=== PATIENT | female | born 1975 | race Two or more races ===

== ENCOUNTER 2025-11-10 09:14 | Emergency (ER) | payer OTHER, SELFPAY ==
--- OUTSIDE RECORDS SUMMARY | 2025-11-09 19:47 | XMS_ITS | Encounter Summary ---
Author Organization [facility] Address [address] [place] [address] Care Team Providers Care Supervisor Calibration Name Role Phone Karey Powers Primary Care Provider [phone] Reason for Visit * Reason Comments Earache B/L ear pain on and off for several days Encounter Details Date Type Department Care Team (Late st Contact Info) Description 11/09/2025 7:47 PM EST - 11/09/2025 8:02 PM EST Emergency [facility] Emergency [address] [place] [address] Left ear pain (Primary Dx); Acute otitis externa of left ear, unspecified type Discharge Disposition: Home or Self Care Social History Tobacco Use Types Packs/Day Years Used Date Smoking Tobacco: Never Smokeless Tobacco: Never Alcohol Use Standard Drinks/Week Comments Yes 0 (1 standard drink = 0.6 oz pur e alcohol) Comments No Sex and Gender Information Value Date Recorded Sex Assigned at Not on file Legal Sex Female 10:51 AM EST Gender Identity Not on file Sexual Orientation Not on file documented as of this encounter Last Filed Vital Signs Vital Sign Reading Time Taken Comments Blood Pressure 150/100 11/09/2025 4:49 PM EST Pulse 107 11/09/2025 4:49 PM EST Temperature 36.5 C (97.7 F) 11/09/2025 4:55 PM EST Respiratory Rate 18 11/09/2025 4:49 PM EST Oxygen Saturation 99% 11/09/2025 4:49 PM EST Inhaled Oxygen Concentration - - Weight 77.1 kg (170 lb) 11/09/2025 4:49 PM EST Height 162.6 cm (5' 4 ) 11/09/2025 4:49 PM EST Body Mass Index 29.18 11/09/2025 4:49 PM EST documented in this encounter Functional Status * Calculated C-SSRS Risk Score (Lifetime/Recent) Answer Date of Assessment Author No Risk Indicated 11/09/2025 4:54 PM Saba De La Cruz RN * [place] Suicide Severity Rating Scale (Screener/Recent Self-Report) Question Answer Date of Assessment Author 1. Wish to be (Past 1 Month) No 025 4:54 PM Saba De La Cruz RN 2. Non-Specific Active Suici mandie Thoughts (Past 1 Month) No 11/09/2025 4:54 PM Vimal De La Cruz son, RN 6. Suicidal Behavior (Lifetime) No 5 4:54 PM Saba De La Cruz RN documented as of this encounter Discharge Instructions * Attachments The following attachments cannot be sent through Care Everywhere. * Earache: Adult (Uruguayan) * Otitis Externa ([place]ayan) documented in this encounter Medications at Time of Discharge ibuprofen (ADVIL,MOTRIN) 600 mg tablet Take 600 mg by mouth every 8 hours as needed. ibuprofen (ADVIL,MOTRIN) 800 mg tablet Take 1 tablet by mouth every 6-8 hours as needed for pain. 30 tablet 11/09/2025 6 losartan-hydroCH LOROthiazide (HYZAAR) 100-25 mg per tablet Take 1 tablet by mouth daily. menthol gel Apply 1 Application topically 1 (one) time each day. 100 g 2 03/16/2025 mirabegron (MYRBETRIQ) 50 mg tablet extended release 24 hr 24 hr tablet Take 50 mg by mouth daily. 01/24/2024 ofloxacin (FLOXIN) 0.3 % otic solution Administer 5 drops into the left ear 2 (two) times a day for 5 days. 5 mL 11/09/2025 5 documented as of this encounter Ordered Prescriptions Prescription Sig Dispense Quantity Refills Last Filled Start Date End Date ofloxacin (FLOXIN) 0.3 % otic solution Administer 5 drops into the left ear 2 (two) times a day for 5 days. 5 mL 11/09/2025 5 ibuprofen (ADVIL,MOTRIN) 800 mg tablet Take 1 tablet by mouth every 6-8 hours as needed for pain. 30 tablet 11/09/2025 documented in this encounter Discharge Disposition Disposition Code Departure Means Destination Comment s Home or Self Care documented in this encounter Progress Notes * Saba Duong RN - 11/09/2025 4:50 PM EST Pt to ed c/o left ear pain. Initially c/o right ear pain which has resolved. Denies subjective fevers, no vision changes, denies any dizziness. * Abiola Negrete MD - 11/09/2025 4:47 PM EST Images from the original note were not included. [facility] EMERGENCY EMERGENCY DEPARTMENT ENCOUNTER CHIEF COMPLAINT Chief Complaint Patient presents with Earache B/L ear pain on and off for several days HISTORY OF PRESENT ILLNESS Patient presents reporting pain in her neck and ears for 2 weeks first on left and now on right. Patient denies fever, trauma, chest pain, shortness of fever, abdominal pain, nausea, vomiting. She notes she had cold symptoms at that time. Patient reports she can move her neck but it hurts. She denies headache. FOCUSED PHYSICAL EXAM Vitals: 11/09/25 1649 BP: (!) 150/100 BP Location: Right arm Patient Position: Standing Pulse: 107 Resp: 18 SpO2: 99% Weight: 77.1 kg (170 lb) Height: 1.626 m (64 ) General: awake, alert, NAD HEENT: normal TM, canals and external ears bilaterally Respiratory: no respiratory distress, normal lung sounds Cardiovascular: RRR, no murmurs Abdomen: soft, non-tender Neurological: no focal neurologic deficits DIAGNOSTIC TESTING Based on the patient's history and physical exam the following labs and radiology studies were ordered in order to evaluate, work-up and determine best course of treatment for the patient. The studies were ordered by me and will be interpreted by the provider who completes the patient's course: Labs Reviewed - No data to display No orders to display No results found for this or any previous visit (from the past 4464 hours). Based on the above history and exam the following medications and/or treatments were ordered in order to start initial treatment and stabilization the patient's condition: Medications - No data to display The patient is condition and response to care provided will be followed closely and may be transitioned to another provider or continued by me. This is only an initial rapid medical evaluation. Abiola Negrete MD (electronically signed) 4:54 PM EST * CHANCE Zarate - 11/09/2025 4:43 PM EST HPI Chief Complaint Patient presents with Earache B/L ear pain on and off for several days HPI bilateral pain worsening for the past several days but now worse on left side denying fever chills headache discharge. No previous surgeries. No reported trauma or recent submersion. No treatments tried. No data recorded Patient History Medical History[1] Surgical History[2] Family History[3] Social History Tobacco Use Smoking status: Never Smokeless tobacco: Never Substance Use Topics Alcohol use: Yes Drug use: Never Review of Systems Review of Systems Physical Exam ED Triage Vitals Temp Heart Rate Resp BP 11/09/25 1655 11/09/25 1649 11/09/25 1649 11/09/25 1649 36.5 ??C (97.7 ??F) 107 18 (!) 150/100 SpO2 Temp src Heart Rate Source Patient Position 11/09/25 1649 -- 11/09/25 1649 11/09/25 1649 99 % Monitor Standing BP Location FiO2 (%) 11/09/25 1649 -- Right arm Physical Exam GENERAL: Well developed, no acute distress HEENT: Normocephalic and atraumatic, EOMI, no erythema bulging of the tympanic membrane but tenderness within the canal, no mastoid tenderness NECK: Supple, trachea is midline RESP: No respiratory distress CARDIOVASCULAR: Regular rate GASTROINTESTINAL: Abdomen is soft, non distended MUSCULOSKELETAL: ROM normal, no obvious acute deformities SKIN: Warm and dry NEUROLOGIC: At baseline, no acute focal deficits PSYCHIATRIC: Calm and cooperative ED Course & MDM Clinical Impressions as of 11/09/252001 Left ear pain Acute otitis externa of left ear, unspecified type Medical Decision Making Exam history consistent with left otitis externa Vital signs reviewed Pulse oximetry reviewed and found to be > 94% on room air Physical exam as above Nursing notes reviewed Social determinants of health considered including housing follow-up social and financial support Patient deemed appropriate for discharge with symptomatic treatment, recommendations to follow-up with primary care doctor / specialist with return precautions provided Procedures CHANCE Zarate 11/09/252012 [1] Past Medical History: Diagnosis Date Dyspepsia 02/01/2020 DX:Dyspepsia Essential hypertension 02/01/2020 DX:Essential hypertension Functional constipation 02/01/2020 DX:Functional constipation Mixed hyperlipidemia 02/01/2020 DX:Mixed hyperlipidemia Pre-diabetes 02/01/2020 DX:Pre-diabetes [2] Past Surgical History: Procedure Laterality Date SECTION PROCEDURE: HISTORICAL DELIVERY; COMMENT: x3 [3] Family History Problem Relation Name Age of Onset Breast cancer Neg Hx Ovarian cancer Neg Hx Uterine cancer Neg Hx Pancreatic cancer Neg Hx Prostate cancer Neg Hx CHANCE Zarate 11/09/252019 Cosigned by Otis Fan MD at 11/09/2025 10:52 PM EST documented in this encounter Plan of Treatment Not on file documented as of this encounter Goals Goal Patient Goal Type Associated Problems Recent Progress Patient-Stated? Author STG's 5 visits General Yes Temo Berumen, PT Note: Pt will report a 1 point decrease in LBP during daily activities including work. Pt will demonstrate a 1/2 grade or better improvement in core and B LE strength deficits. Pt will perform correct technique for sup<->sit transfers w/ min VC's in 5/5 trials. Pt is Independent and compliant with initial HEP. LTG's 10 visits General Yes Temo Berumen, PT Note: Pt will report a 2 point decrease in LBP during daily activities including work. Pt will demonstrate a 1 grade or better improvement in core and B LE strength deficits. Pt will I demonstrate proper technique for sup<->sit transfers in 5/5 trials. Pt will be Independent and compliant with final HEP. documented as of this encounter Visit Diagnoses Diagnosis Left ear pain- Primary Unspecified otalgia Acute otitis externa of left ear, unspecified type documented in this encounter Administered Medications Inactive Administered Medications - up to 3 most recent administrations Medication Order MAR Action Action Date Dose Rate Site ketorolac (TORADOL) injection 30 mg 30 mg, intramuscular, Once, On Sat11/09/25 at 194, For 1 dose Given 11/09/2025 7:58 PM EST 30 mg Left Anterior Thigh documented in this encounter Active and Recently Administered Medications Times are shown in EST. Scheduled Medication Order 11/07/2025 11/08/2025 11/09/2025 ketorolac (TORADOL) injection 30 mg (COMPLETED) 30 mg, intramuscular, Once, On Sat11/09/25 at 194, For 1 dose 1957 (Given - Provid er: Qamar Theodore RN) documented in this encounter Orders Medications Ordered That Yogesh ht Not Have Been Administered Count Last Ordered Date First Ordered Date ketorolac (TORADOL) injection 30 mg 1 11/09 documented in this encounter Care Teams Supervisor Calibration Relationship Specialty Start Date End Date Karey Powers PA [facility] [place] [address] PCP - General Internal Medicine 01/15/20 documented as of this encounter
[2025-11-10 09:17] VITALS: BP 139/80; PULSE 97; RESP 16; TEMP 36.6; O2SAT 97; BMI 29.3
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
--- OUTSIDE RECORDS SUMMARY | 2025-11-10 09:35 | XMS_ITS | Clinical Summary ---
Author Organization [facility] [address] [facility] Address [address] [place] [phone] Phone Care Team Providers Care Tester Vibrator Equipment Name Role Phone Karey Powers Primary Care Provider [phone] Allergies Active Allergy Reactions Criticality Noted Date Comments Other 02/26/2023 Percocet [Apap-fd&c Blue #1-oxycodone] Medications ibuprofen (ADVIL,MOTRIN) 600 mg tablet Take 600 mg by mouth every 8 hours as needed. Active losartan-hydroC HLOROthiazide (HYZAAR) 100-25 mg per tablet Take 1 tablet by mouth daily. Active mirabegron (MYRBETRIQ) 50 mg tablet extended release 24 hr 24 hr tablet Take 50 mg by mouth daily. 4 Active menthol gel Apply 1 Application topically 1 (one) time each day. 100 g 2 5 Active ibuprofen (ADVIL,MOTRIN) 800 mg tablet Take 1 tablet by mouth every 6-8 hours as needed for pain. 30 tablet 5 11/19/19 26 Active ofloxacin (FLOXIN) 0.3 % otic solution Administer 5 drops into the left ear 2 (two) times a day for 5 days. 5 mL 5 11/14/20 25 Active Active Problems Problem Noted Date Diagnosed Date Cystocele, midline 12/30/2024 Assessment & Plan (12/30/2024 4:34 PM EST): I counseled Madeline that she may have a very mild cystocele, but if she is not symptomatic, there is no intervention necessary. The mucosa we see on exam today is actually normal. She was reassured. Elevated prolactin level 02/26/2023 Overview (12/18/2024): Last Assessment & Plan: I recommended she have a repeat fasting, first thing in the am, no intercourse or breast stimulation for a few days prior. Will discuss results when available. She agreed. Pain of finger of right hand 02/26/2023 Overview (12/18/2024): Last Assessment & Plan: I reviewed her chart and she was referred and had an appt last April. She did not know about it. I referred her again. She was informed that she should hear back in 1- 2 weeks with an appointment date. If not, she should call back to our office and inquire on getting this arranged. She voiced understanding and agreed. Herpes simplex vulvovaginitis 11/27/2021 Overview (12/18/2024): Last Assessment & Plan: I reviewed the findings with the patient consistent with HSV lesions. Not likely primary outbreak given history of previous lesions per patient report. I discussed the nuances of testing and the chronicity of disease. I reviewed method of transmission even in the absence of lesions. I explained Valtrex can help prevent asymptomatic transmission. I recommended against intercourse with active lesions. I recommended she share this information with partners. She understood and agreed. She requested suppression. Rx given for treatment and suppression. Irregular menses 11/27/2021 Overview (12/18/2024): Last Assessment & Plan: Will obtain lab evaluation. Could be menopausal transition, but given previous history of irregular menses, could be PCOS. She will have labs today. No indication as yet to induce menses given LMP within the past month. Dyspepsia 02/01/2020 Essential hypertension 02/01/2020 Functional constipation 02/01/2020 Mixed hyperlipidemia 02/01/2020 Pre-diabetes 02/01/2020 Encounters Date Type Department Care Team Description 11/09/2025 7:47 PM EST - 11/09/2025 8:02 PM EST Emergency [facility] Emergency [address] [place] [address] Left ear pain (Primary Dx); Acute otitis externa of left ear, unspecified type Discharge Disposition: Home or Self Care 10/27/2025 2:00 PM EST Treatment Outpatient [address] [phone] Angy Hernandez, [employer] Chronic bilateral low back pain with bilateral sciatica (Primary Dx) 10/13/2025 1:30 PM EST Treatment Outpatient [address] [phone] Angy Hernandez, [employer] Chronic bilateral low back pain with bilateral sciatica (Primary Dx) 09/29/2025 12:30 PM EST Treatment Outpatient [address] [phone] Angy Hernandez, [employer] Chronic bilateral low back pain with bilateral sciatica (Primary Dx) 09/22/2025 2:00 PM EST Treatment Outpatient [address] [phone] Angy Hernandez, [employer] Chronic bilateral low back pain with bilateral sciatica (Primary Dx) 09/17/2025 2:30 PM EDT Evaluation Outpatient [address] [phone] Temo Berumen, PT Chronic bilateral low back pain with bilateral sciatica (Primary Dx) 08/26/2025 1:30 PM EDT Office Visit Orthopedic Surgery - [address] [phone] Casey Gann DPM Controlled type 2 diabetes with neuropathy (CMS/HCC V24, CMS/HCC V28) (Primary Dx); Chronic bilateral low back pain with bilateral sciatica; Lumbosacral radiculopathy; Metatarsalgia of left foot; Metatarsalgia of right foot from Last 3 Months Surgical History Surgery Date Site/Laterality Comments SECTION PROCEDURE: HISTORICAL DELIVERY; COMMENT: x3 Medical History Medical History Date Comments Functional constipation 02/01/2020 DX:Funct ional constipation Dyspepsia 02/01/2020 DX:Dyspepsia Pre-diabetes 02/01/2020 DX:Pre-diabetes Essential hypertension 02/01/2020 DX:Essent ial hypertension Mixed hyperlipidemia 02/01/2020 DX:Mixed hy perlipidemia Family History Medical History Relation Name Comments Breast cancer Neg Hx Ovarian cancer Neg Hx Pancreatic cancer Neg Hx Prostate cancer Neg Hx Uterine cancer Neg Hx Social History Tobacco Use Types Packs/Day Years Used Date Smoking Tobacco: Never Smokeless Tobacco: Never Alcohol Use Standard Drinks/Week Comments Yes 0 (1 standard drink = 0.6 oz pur e alcohol) Comments No Sex and Gender Information Value Date Recorded Sex Assigned at Not on file Legal Sex Female 10:51 AM EST Gender Identity Not on file Sexual Orientation Not on file Obstetrics History * This document contains information received from the source organization and may not represent a complete record from that organization. Para Term AB IAB SAB Ectopic Multiple Livin g Live Births 6 3 3 0 0 0 3 3 Date Outcome GA Total Labor Labor//3rd Weight Sex Type Anes PTL Yaima A1 A5 Name Clin Term CS-Un spec Living Term CS-Un spec Living Term CS-Un spec Living Last Filed Vital Signs Vital Sign Reading [...] Mass Index 29.18 11/09/2025 4:49 PM EST Plan of Treatment Health Maintenance Due Date Last Done Comments Diabetes: Annual Foot Exam 1983 Diabetes: Annual Retina Eye Exam 1983 Hepatitis B Vaccines (1 of 3 - 19+ 3-dose series) 1992 Pneumococcal Vaccine: 50+ Years (1 of 2 - PCV) 1992 Social Influencers of Health Screening 10/27/2022 RSV Immunization Adult Patients (1 - Risk 50-74 years 1-dose series) 2023 Depression Screening 11/18/2024 COVID-19 Vaccine (3 - season) 2025 05/10/2021, 04/12/2021 Diabetes: Annual Urine Albumin-Creatinine Ratio (uACR) 08/26/2025 11/16/2020, 11/16/2020 Diabetes: Blood Sugar Control Test (HGBA1C) 08/26/2025 09/30/2024 Diabetes: Annual GFR (Glomerular Filtration Rate) 09/30/2025 09/30/2024 Hypertension/CHF/CAD Annual BMP Blood Test 09/30/2025 09/30/2024 Breast Cancer Screening 10/08/2025 10/08/20, 08/04/2022, 07/29/2021 Zoster Vaccines (2 of 2) 12/08/2025 10/13/2025 Cervical Cancer Screening: HPV 05/09/2026 05/09/2021 DTaP,Tdap,and Td Vaccines (3 - Td or Tdap) 04/24/2028 04/24/2018, 09/12/2017 Cholesterol Screening (Lipid Panel) 09/30/2029 09/30/2024, 09/30/2024, 06/02/2024, Additional history exists Colorectal Cancer Screening: Colonoscopy 06/08/2030 06/08/2020 MMR Vaccines Aged Out 04/24/2018 No longer eligi ble based on patient's age to complete this topic HIV Screening Completed 05/09/2021 Hepatitis C Screening Completed 10/17/2021, 021 Influenza Vaccine Completed 10/13/2025, , 09/30/2020, Additional history exists HIB Vaccines Aged Out No longer eligi ble based on patient's age to complete this topic HPV Vaccines Aged Out No longer eligi ble based on patient's age to complete this topic Hepatitis A Vaccines Aged Out No long er eligible based on patient's age to complete this topic IPV Vaccines Aged Out No longer eligi ble based on patient's age to complete this topic Meningococcal ACWY Vaccine Aged Out N o longer eligible based on patient's age to complete this topic Meningococcal B Vaccine Aged Out No l onger eligible based on patient's age to complete this topic RSV Immunization Patients Under 20 months Aged Out No longer eligible based on patient's age to complete this topic Varicella Vaccines Aged Out No longer eligible based on patient's age to complete this topic Goals Goal Patient Goal Type Associated Problems [...] be Independent and compliant with final HEP. Procedures Procedure Name Priority Date/Time Associated Diagnosis Comments XR LUMBAR SPINE 2-3 VIEWS Routine 08/26/2025 2:19 PM EDT Back pain SCREENING MAMMOGRAPHY BI 2-VIEW BREAST INC CAD Routine 10/08/2023 1:59 PM EST Encounter for screening mammogram for malignant neoplasm of breast HPV Routine 05/09/2021 HEPATITIS C SCREENING Routine 05/09/2021 HIV SCREENING Routine 05/09/2021 COLONOSCOPY Routine 06/08/2020 from Last 3 Months or Most Recently Relevant to Health Maintenance Results * XR Lumbar Spine 2-3 Views (08/26/2025 2:19 PM EDT) Anatomical Region Laterality Modality Spine, L-spine Computed Radiogr aphy 09/30/2025 8:09 PM EST Impressions 09/30/2025 8:10 PM EST No acute fracture or dislocation of the lumbar spine. -------- FINAL REPORT -------- Dictated By: Alfredo Maldonado Dictated Date: 09/30/2025 20:09 ET Assigned Physician: Alfredo Maldonado Reviewed and Electronically Signed By: Alfredo Maldonado Signed Date: 09/30/2025 20:10 ET Workstation ID: [id number] Transcribed By: Self Edit Transcribed Date: 09/30/2025 20:09 ET Narrative 09/30/2025 8:10 PM EST HISTORY: low back pain TECHNIQUE: AP and lateral views of the lumbar spine COMPARISON: None FINDINGS: Vertebral body height is maintained. Decreased disc height at L1-L2, L5-S1 with endplate sclerosis. Mild facet arthropathy at the lower lumbar spine. No acute fracture or dislocation is seen. The spinal alignment is well maintained without evidence of spondylolisthesis. Large amount stool throughout the colon. The sacroiliac joints are unremarkable. Procedure Note Alfredo Maldonado MD - 09/30/2025 HISTORY: low back pain TECHNIQUE: AP and lateral views of the lumbar spine COMPARISON: None FINDINGS: Vertebral body height is maintained. Decreased disc height at L1-L2, L5-S1with endplate sclerosis. Mild facet arthropathy at the lower lumbar spine.No acute fracture or dislocation is seen. The spinal alignment is wellmaintained without evidence of spondylolisthesis. Large amount stoolthroughout the colon. The sacroiliac joints are unremarkable. IMPRESSION: No acute fracture or dislocation of the lumbar spine. -------- FINAL REPORT -------- Dictated By: Alfredo Maldonado Dictated Date: 09/30/2025 20:09 ET Assigned Physician: Alfredo Maldonado Reviewed and Electronically Signed By: Alfredo Maldonado Signed Date: 09/30/2025 20:10 ET Workstation ID: [id number] Transcribed By: Self Edit Transcribed Date: 09/30/2025 20:09 ET us Casey Gann DPM IMG XR PROCEDURES Final Res ult * SCREENING MAMMOGRAPHY BI 2-VIEW BREAST INC CAD (10/08/2023 1:59 PM EST) Anatomical Region Laterality Modality Radiographic Haylie ging 08/04/2022 12:4 7 PM EDT Narrative 10/09/2023 10:06 AM EST This is a summary report. The complete report is available in the patient's medical record. If you cannot access the medical record, please contact the sending organization for a detailed fax or copy. BILATERAL 3D DIGITAL SCREENING MAMMOGRAM History: Routine screening. No current breast complaints. Comparison: Multiple priors dating back to mammograms dating back to 07/29/2021 Technique: Bilateral full-field digital 3D mammography was performed using standard CC and MLO projections, bilateral exaggerated cc view CAD was used to evaluate this mammogram. Findings: Density: There are scattered areas of fibroglandular density-B RIGHT: No suspicious masses, groups of microcalcification or areas of architectural distortion identified. Stable typically benign parenchymal asymmetries LEFT: No suspicious masses, groups of microcalcifications or areas of architectural distortion identified. Stable typically benign parenchymal asymmetries IMPRESSION: : 1. No mammographic evidence of malignancy. BI-RADS Category 2 benign findings Recommendation: Routine annual screening mammography is recommended Procedure Note Alfredo Maldonado MD - 12/24/2023 This is a summary report. The complete report is available in thepatient's medical record. If you cannot access the medical record, pleasecontact the sending organization for a detailed fax or copy. BILATERAL 3D DIGITAL SCREENING MAMMOGRAM History: Routine screening. No current breast complaints. Comparison: Multiple priors dating back to mammograms dating back to07/29/2021 Technique: Bilateral full-field digital 3D mammography was performed usingstandard CC and MLO projections, bilateral exaggerated cc view CAD was used to evaluate this mammogram. Findings: Density: There are scattered areas of fibroglandular density-B RIGHT: No suspicious masses, groups of microcalcification or areas ofarchitectural distortion identified. Stable typically benign parenchymalasymmetries LEFT: No suspicious masses, groups of microcalcifications or areas ofarchitectural distortion identified. Stable typically benign parenchymalasymmetries IMPRESSION: : 1. No mammographic evidence of malignancy. BI-RADS Category 2 benign findings Recommendation: Routine annual screening mammography is recommended us Darby Gleason MD IMG XR PROCEDURES Final Res ult * Cervical Cancer Screening: HPV (05/09/2021) Pathologist Count includes the [facility] Cervical Cancer Screening: HPV negative, abstracted Historical Provider HEALTH MAINTENANCE Final Result * HIV Screening (05/09/2021) [facility] HIV Screening abstracted [facility] Provider HEALTH MAINTENANCE Final Result * Hepatitis C Screening (05/09/2021) Pathologist Count includes the [facility] Hepatitis C Screening abstracted [facility] Provider HEALTH MAINTENANCE Final Result * Colonoscopy (06/08/2020) Pathologist Count includes the [facility] Colonoscopy negative, abstracted Anatomical Region Laterality Modality Other Historical Provider HEALTH MAINTENANCE Final Result from Last 3 Months or Most Recently Relevant to Health Maintenance Insurance [facility] [employer] [employer] Care Teams Tester Vibrator Equipment Relationship Specialty Start Date End Date Karey Powers PA [address] [place] [phone] PCP - General Internal Medicine 01/15/20
[2025-11-10 11:40] VITALS: BP 139/80; PULSE 97; RESP 16; TEMP 36.6; O2SAT 97
== END 2025-11-10 11:40 | disposition home or self-care (01) ==
PROVIDERS: Emergency Provider Emergency Medicine; PCP Dentist General Practice
DX: Z04.1 Encounter for examination and observation following transport accident (principal); M54.2 Cervicalgia
CPT/HCPCS: 99282